=== PATIENT | female | born 1960 | race Caucasian/White ===

== ENCOUNTER 2025-07-03 10:00 | Outpatient (RCR) | payer BC, SELFPAY | END 2025-10-31 23:59 | disposition home or self-care (01) | PROVIDERS: PCP Physician Assistant Medical; Visit Provider Physician Assistant Medical | DX: M62.89 Other specified disorders of muscle (principal); Z51.89 Encounter for other specified aftercare | CPT/HCPCS: 97110; 97140; 97162; 97535 ==